=== PATIENT | male | born 1980 | race Caucasian/White ===

== ENCOUNTER 2023-12-10 18:00 | Emergency (ER) | payer SELFPAY ==
[2023-12-10 18:00] VITALS: BP 165/101; PULSE 112; RESP 18; TEMP 36.9; O2SAT 99
--- NOTE | 2023-12-10 18:02 | ECG_ITS ---
Test Date: 2023-12-10 18:22:02 Measurements Intervals [place] Rate: 96 P: 31 MO: 135 QRS: 14 QRSD: 90 T: 23 QT: 347 QTc: 439 Interpretive Statements SINUS RHYTHM INCOMPLETE RIGHT BUNDLE BRANCH BLOCK BASELINE ARTIFACT- I, II, V4-V6 BORDERLINE ECG No previous ECG available for comparison Electronically Signed On 12-10-2023 20:02:13 CDT by Michael Najera D.O.
--- NOTE | 2023-12-10 18:04 | ED.PSYCH ---
HPI - Psych General Chief Complaint: Psychiatric Symptoms Stated Complaint: S I, DEPRESSION Source: patient Mode of arrival: other ( Custody with police) Limitations: no limitations History of Present Illness HPI Narrative: patient is a 43-year-old male who was in local police custody for charges and they will stay with the patient at this time. He was brought in for psychiatric evaluation and clearance. Patient is suicidal and he is also possibly alcohol intoxicated at this time. No definite suicide plan. His suicide ideation comes after not being able to find a job and a fight with his [id number]. MD complaint: suicidal ideation and feels depressed Onset (ago): month(s) (1) Duration: intermittent, changing over time and getting worse History of same: Yes Relieving factors: none Exacerbating factors: alcohol, drug use ( THC) and other ( unable to find a job and argument with his brother in a) Context: recent alcohol abuse, recent drug abuse ( THC) and significant life stressor Associated psychiatric symptoms: depression and suicidal ideation Associated symptoms: denies other symptoms Treatments prior to arrival: none If self harm: admits thoughts of self harm Related Data Home Medications Medication Instructions Recorded Confirmed No Home Medications 12/10/23 12/10/23 Allergies Allergy/AdvReac Type Severity Reaction Status Date / Time shellfish derived Allergy Severe Rash Unverified 12/10/23 19:30 Review of Systems Review of Systems: All systems reviewed & are unremarkable except as noted in HPI and below Constitutional: Constitutional: Reports no additional constitutional complaints Eyes: Eyes: Reports no additional eye complaints ENT: Reports system reviewed and no additional complaints, except as documented Cardiovascular: Cardiovascular: Reports no additional cardiovascular complaints Respiratory: Respiratory: Reports no additional respiratory complaints Gastrointestinal: Gastrointestinal: Reports no additional gastrointestinal complaints Genitourinary: Genitourinary: Reports no additional male genitourinary complaints Musculoskeletal: Musculoskeletal: Reports no additional musculoskeletal complaints Integumentary/Breasts: Skin/Breast: Reports system reviewed and no additional complaints, except as docu Neurologic: Reports system reviewed and no additional complaints, except as documented Psychiatric: Psychiatric: Reports no additional psychiatric complaints Endocrine: Endocrine: Reports no additional endocrine complaints Hematologic/Lymphatic: Hematologic/Lymphatic: Reports no additional hematologic/lymphatic complaints Allergic/Immunologic: Allergic/Immunologic: Reports no additional allergic/immunologic complaints PMFSH Social History Social History Substance use type: marijuana Exam Const: General: healthy appearing Nutritional Appearance: well nourished Orientation/consciousness: patient oriented x3 HENMT: Head: normal to inspection Ears: external ears normal Face/Nose/Sinus: Normal external nose present Eyes: Conjunctivae: conjunctivae normal Pupils: Equal, round and reactive pupils present EOM: EOMs intact bilaterally Neck: Neck: normal visual inspection Chest: Chest palpation & inspection: normal inspection of the chest Resp: Effort & Inspection: normal respiratory effort and not labored Auscultation: clear to auscultation bilaterally and no crackles Cardio: Rate: regular rate Rhythm: regular rhythm Heart sounds: no murmurs GI: Inspection: non-distended GI Palp: Yes Soft to palpation and No Tenderness to palpation present (GI) Auscultation: normal bowel sounds : General: Yes bladder normal to palpation Back/Spine/Pelvis: Back: no CVA tenderness Skin: General skin exam: normal color Rashes: no rashes Wounds: no wounds Neuro: General: patient oriented x3 Cranial nerves: Yes Nystagmus not presen
[2023-12-10 18:20] VITALS: PULSE 97; RESP 18
[2023-12-10 18:27] LABS: Basophils Absolute Auto 0.03 K/mm3 (0.00-0.10); Basophils Percent Auto 0.4 % (0.0-1.0); Eosinophils Absolute Auto 0.08 K/mm3 (0.02-0.50); Eosinophils Percent Auto 1.1 % (1.0-6.0); Hematocrit 46.4 % (40.0-54.0); Hemoglobin 15.9 g/dL (14.0-18.0); Immature Granulocyte Absolute 0.02 K/mm3 (0.00-0.00); Immature Granulocyte Percent A 0.3 % (0.0-0.0); Lymphocytes Absolute Auto 1.33 K/mm3 (1.10-4.50); Mean Corpuscular HGB Conc 34.3 g/dL (32-36); Mean Corpuscular Hemoglobin 29.7 pg (27.0-31.0); Mean Corpuscular Volume 86.6 fL (78.0-102.0); Mean Platelet Volume 9.1 fl (8.7-11.0); Monocytes Absolute Auto 0.51 K/mm3 (0.10-0.90); Monocytes Percent Auto 7.3 % (2.0-11.0); Neutrophils Absolute Auto 5.04 K/mm3 (1.70-7.20); Neutrophils Percent Auto 71.9 % (50.0-70.0); Platelet Count Result 188 K/mm3 (150-420); Red Blood Count 5.36 M/mm3 (4.70-6.10); Red Cell Distribution Width 12.6 % (11.6-14.4)
[2023-12-10 18:48] LABS: Appearance Urine Clear (Clear); Color Urine Yellow (Yellow); Glucose Urine UA Negative (Negative); Protein Urine Negative (Negative)
[2023-12-10 18:49] LABS: Add Urine Microscopic? NO; Bilirubin Urine Negative (Negative); Blood Urine Negative (Negative); Ketones Urine Negative (Negative); Leukocyte Esterase Ur Negative LEU/UL (Negative); Nitrate Urine Negative (Negative); Urobilinogen Urine 0.2 mg/dL (0.2-1.0)
--- NOTE | 2023-12-10 18:54 | PC.NURSE ---
assumed care. report received from Gibson FREEMAN. patient is currently resting on stretcher in room 5. Katiana as sitter outside the room. human resource officer at the bedside. patient is currently under arrest. awaiting lab work from Brennan. patient is calm and cooperative at this time
[2023-12-10 19:01] VITALS: BP 135/83; PULSE 100; RESP 16; O2SAT 97
--- NOTE | 2023-12-10 19:07 | PCDIET ---
1900 report to zane doshi. all questions answered. awaiting lab results.
[2023-12-10 19:19] LABS: SARS-CoV-2 RNA PCR Negative (Negative)
[2023-12-10 19:20] LABS: Influenza A QL RT-PCR Negative (Negative); Influenza B QL RT-PCR Negative (Negative); RSV RNA, RT-PCR Negative (Negative)
[2023-12-10 19:29] LABS: Acetaminophen < 10 ug/mL (10-30); Ethanol < 10 mg/dL (<10); Salicylate < 1.0 mg/dL (2-20)
--- NOTE | 2023-12-10 19:31 | PC.NURSE ---
patient requested nicotine patch. notified dr lloyd. verbal order was given and placed into computer
[2023-12-10] MEDS: NICOTINE (*PBKC) 21 MG PATCH 1 PATCH TRANSDERM (19:36)
--- NOTE | 2023-12-10 19:39 | PC.NURSE ---
patient is resting on stretcher. calm and cooperative. makes eye contact. denies any needs other than the nicotine patch at this time. paige Skinner, sitting outside the room. real estate loan officer sitting outside the room
[2023-12-10 19:41] LABS: Amphetamine Screen Urine Negative (Negative); Barbiturate Screen Urine Negative (Negative); Benzodiazepines Screen Urine Negative (Negative); Cannabinoid Screen Urine Positive (Negative); Cocaine Screen Urine Negative (Negative); Methadone Screen Urine Negative (Negative); Opiate Screen Urine Negative (Negative); Phencyclidine Screen Urine Negative (Negative)
[2023-12-10 20:11] LABS: Alanine Aminotransferase 31 U/L (6-50); Albumin Level 4.7 g/dL (3.5-5.1); Alkaline Phosphatase 86 U/L (38-126); Anion Gap 12 mmol/L (4-12); Aspartate Amino Transferase 35 U/L (17-59); Bilirubin,Total 0.4 mg/dL (0.2-1.3); Blood Urea Nitrogen 16 mg/dL (9-20); Calcium 9.6 mg/dL (8.4-10.2); Carbon Dioxide 20 mmol/L (22-30); Chloride 107 mmol/L (98-107); Estimated CRCL calculation 112 ml/min; Estimated Glomerular Filt Rate > 60; Glucose 119 mg/dL (65-110); Osmolality Calculated 290 mOsm/kg (285-295); Potassium 3.7 mmol/L (3.4-5.0); Sodium 139 mmol/L (137-145)
--- NOTE | 2023-12-10 20:48 | PC.NURSE ---
current plan of care. Patient will be transported to prison, placed on suicide watch, [facility] to evaluate in the am. Patient personal belongings returned to him. Police officers at the bedside.
== END 2023-12-10 20:59 ==
PROVIDERS: Emergency Provider Emergency Medicine
DX: F32.A Depression, unspecified (principal); R45.851 Suicidal ideations; Z20.822 Contact with and (suspected) exposure to COVID-19
CPT/HCPCS: 36415; 80053; 80307; 81003; 84443; 85025; 87637; 93005; 99284; A9270